=== PATIENT | female | born 1985 | race Caucasian/White ===

== ENCOUNTER 2018-04-12 10:22 | Inpatient (IN) | payer MEDICAID, OTHER, SELFPAY ==
[2018-04-12] MEDS: Lactated Ringer's 1,000 ML IV SCH ×2 (11:05→21:55)
[2018-04-12] MEDS ORDERED: Ondansetron PF 4 MG/2 ML Vial IVP PRN ×3 (11:17→19:04)
[2018-04-12] MEDS ORDERED: Bicitra 30 ML UDCUP PO SCH (11:17)
[2018-04-12] MEDS ORDERED: CEFAZOLIN/Water 2 GM/20 ML SYRINGE SLOW IVP SCH (11:17)
[2018-04-12] MEDS ORDERED: CEFAZOLIN 2 GM/50 ML-DEXTROSE 2 GM in Premix Bag 1 BAG IVPB SCH (11:30)
[2018-04-12 11:35] VITALS: BMI 33.5
[2018-04-12 11:37] LABS: Hemoglobin 13.3 g/dL (12.0-16.0); Mean Corpuscular HGB CONC 33.9 g/dL (32.0-36.0); Mean Corpuscular Hemoglobin 30.4 pg (27.0-31.0); Mean Corpuscular Volume 89.6 fL (78.0-98.0); Platelet Count 192 thou/uL (130-400); RBC Distribution Width 13.2 % (11.5-14.5); Red Blood Cell (RBC) Count 4.37 mill/uL (4.20-5.40); White Blood Cell (WBC) Count 9.8 thou/uL (4.8-10.8)
[2018-04-12 12:12] LABS: Syphilis Antibody Nonreactive (Nonreactive); Syphilis Antibody Index 0.04 S/CO (<1.00 Non-Reactive)
[2018-04-12 12:14] LABS: HBSAg Index 0.25 S/CO (0-0.99); Hep B Surf Ag Non-Reactive S/CO (NonReactive)
[2018-04-12] MEDS ORDERED: Morphine PF 1 MG/ML SYR ONE (14:04)
[2018-04-12] MEDS ORDERED: Bupivacaine 0.75% W/DEXTROSE 8.25% 2 ML AMP ONE (14:05)
[2018-04-12] MEDS ORDERED: PHENYLEPHRINE-NS 100 MCG/ML 10 ML SYRINGE ONE (14:05)
[2018-04-12] MEDS ORDERED: Ketorolac Tromethamine 30 MG/ML VIAL ONE (14:05)
[2018-04-12] MEDS ORDERED: Oxytocin 10 UNITS/ML VIAL ONE ×2 (14:05→15:03)
[2018-04-12] MEDS ORDERED: ePHEDrine/0.9% NaCl/PF SYRINGE 50 mg/10 ml ONE ×2 (14:05→14:12)
[2018-04-12] MEDS ORDERED: Lidocaine 1% PF 5 ML VIAL ONE (14:05)
[2018-04-12] MEDS ORDERED: Ondansetron PF 4 MG/2 ML Vial ONE (14:05)
[2018-04-12] MEDS ORDERED: Meperidine HCl/PF 25 MG/ML VIAL SLOW IVP PRN (14:26)
[2018-04-12] MEDS ORDERED: L&D-Morphine 4 MG/ML VIAL SLOW IVP PRN (14:26)
[2018-04-12] MEDS ORDERED: Ondansetron HCl/PF 4 MG/2 ML Vial IVP PRN (14:26)
[2018-04-12] MEDS ORDERED: HYDROmorphone 2 MG/ML VIAL SLOW IVP PRN (14:26)
[2018-04-12] MEDS ORDERED: Promethazine HCl 25 MG SUPP PR PRN (14:27)
[2018-04-12] MEDS ORDERED: Eucerin (Mineral Oil/Petrolatum,White) 30 gm Jar TOP PRN (14:27)
[2018-04-12] MEDS ORDERED: Naloxone HCl 0.4 mg/ml Vial IV PRN (14:27)
[2018-04-12] MEDS ORDERED: Promethazine HCl 25 MG/ML VIAL IM PRN (14:27)
[2018-04-12] MEDS ORDERED: diphenhydrAMINE 50 MG/ML VIAL IVP PRN (14:27)
[2018-04-12] MEDS ORDERED: Ketorolac Tromethamine 30 MG/ML VIAL IVP PRN (14:27)
[2018-04-12] MEDS ORDERED: Naloxone HCl 0.4 mg/ml Vial IVP PRN ×2 (14:27)
[2018-04-12] MEDS ORDERED: Ketorolac Tromethamine 30 MG/ML VIAL IVP SCH (14:30)
[2018-04-12] MEDS ORDERED: Communication Order-Pharmacy FS SCH (14:30)
[2018-04-12] MEDS ORDERED: Methylergonovine 0.2 MG/ML VIAL ONE (16:22)
[2018-04-12] MEDS ORDERED: Misoprostol 200 MCG TAB ONE (16:22)
[2018-04-12] MEDS ORDERED: Misoprostol 200 MCG TAB PO SCH (16:45)
[2018-04-12] MEDS ORDERED: Methylergonovine 0.2 MG/ML VIAL IM SCH (16:45)
[2018-04-12] MEDS ORDERED: diphenhydrAMINE 25 MG CAP PO PRN (19:04)
[2018-04-12] MEDS ORDERED: Bisacodyl 10 MG SUPP PR PRN (19:04)
[2018-04-12] MEDS ORDERED: Lanolin Ointment 7 GM TUBE TOP PRN (19:04)
[2018-04-12] MEDS ORDERED: NS / Oxytocin 40 units/1000ml 1,000 ML IV SCH (19:04)
[2018-04-12] MEDS: metroNIDAZOLE 500 MG in Premix Bag 1 BAG IVPB SCH (21:08)
[2018-04-12] MEDS ORDERED: Ibuprofen 800 MG TAB PO SCH (22:00)
[2018-04-12] MEDS ORDERED: CEFAZOLIN 2 GM in Sodium Chloride 0.9% 100 ML IVPB SCH (22:00)
[2018-04-12] MEDS: CEFAZOLIN 2 GM/50 ML-DEXTROSE 2 GM in Premix Bag 1 BAG IVPB SCH (23:02)
--- NOTE | 2018-04-13 01:37 | OP ---
DATE OF PROCEDURE: 04/12/2018 LOCATION: [place], [place]. RESIDENT SURGEON: Osiel Clements DO PROCEDURE PERFORMED: Repeat low-transverse section. PREOPERATIVE DIAGNOSES: 1. Term intrauterine . 2. Previous section. POSTOPERATIVE DIAGNOSES: 1. Term intrauterine , delivered. 2. Repeat low-transverse section. ANESTHESIA: Spinal. INDICATIONS: The patient is a 33-year-old G2, now P2, 39 and 1 week's, who presents for repeat scheduled section. PROCEDURE IN DETAIL: After risks, benefits, and alternatives were explained to the patient, she gave informed consent. Preoperative antibiotics included 2 g of Ancef IV. The patient was taken to the operating room and spinal anesthesia was initiated. She was placed in the supine position with a left tilt and prepped and draped in the usual sterile fashion. A Pfannenstiel incision was made with a scalpel and carried down to the level of the fascia, which was sharply nicked. At this point, it was noted that the patient had dense fascial adhesions, both above the fascia and below, involving segments of omentum. The omental adhesions were carefully lysed using both cautery, blunt dissection and sharp dissection with Meng scissors. The fascial cut was extended bilaterally with Meng scissors. The inferior and superior edges of the cut fascial edges were elevated with Aureliano clamps and underlying rectus muscles were sharply and bluntly dissected free. The recti were divided digitally and retracted manually. At this point, the remaining omental adhesions were bluntly and sharply dissected, including omental adhesions to the underlying uterus. The bladder blade was placed. A low transverse score was made with a scalpel, and the uterus was entered in the midline with the scalpel. Clear fluid was seen. Hysterotomy was extended manually. The was noted to be vertex and easily delivered by fundal pressure. Mouth and nares were bulb suctioned. Cord was clamped and cut and grossly normal female was handed to the awaiting nurse. Cord blood was obtained. The placenta was spontaneously delivered, found to be intact with 3-vessel cord noted and discarded. The uterus was externalized and the endometrium was curetted with a dry lap. The uterus was noted to have approximately 1.5 cm uterine fibroids in addition to adhesed omentum attached to the uterine fundus. The bladder blade was subsequently replaced and the uterus was closed with a running locking 0 Vicryl suture. Two [id number] stitches were then placed and adequate hemostasis was noted following this. Subsequently, the omental adhesion was lysed and 3-0 Vicryl suture was applied around the omental adhesions prior to lysis to ensure hemostasis. Subsequently, Surgicel was placed over the anterior portion of the uterus including over the hysterotomy incision. Seprafilm was then placed over this and small amount of sterile water was applied to the Seprafilm. Prior to Surgicel and Seprafilm placement, the abdomen was irrigated with saline and suctioned free of clots. Following placement of Seprafilm and Surgicel, uterus was internalized and the hysterotomy was again noted to be hemostatic. The peritoneum was then closed with running nonlocking 3-0 Vicryl suture. Fascia was closed with a running non-locking 1 Monocryl suture. Subcutaneous tissue was irrigated and bleeders were cauterized. Subcutaneous tissue was approximated with 3 simple interrupted 3-0 Vicryl sutures. The skin was then approximated with franklin and pressure dressing was placed. All counts were correct. The patient tolerated the procedure well and was taken to the recovery room in stable condition. ESTIMATED BLOOD LOSS: 600 mL. COMPLICATIONS: None. SPECIMENS: Cord blood was sent to the lab for blood type. FINDINGS: 1. Grossly normal female infant with Apgars of 8 and 9. 2. Grossly normal placenta with 3-vessel cord discarded. DRAINS: Donald to gravity drained clear urine. Job ID: [id number]
[2018-04-13] MEDS ORDERED: Meperidine HCl/PF 25 MG/ML VIAL IM PRN (02:30)
[2018-04-13] MEDS ORDERED: HYDROcodone/Acetaminophen 5/325 mg Tablet PO PRN (02:30)
[2018-04-13] MEDS ORDERED: Ketorolac Tromethamine 30 MG/ML VIAL IVP PRN (04:52)
[2018-04-13] MEDS: metroNIDAZOLE 500 MG in Premix Bag 1 BAG IVPB SCH ×3 (04:58→21:17)
[2018-04-13] MEDS: Ferrous Sulfate 325 MG TAB PO SCH ×3 (05:29→20:59)
[2018-04-13] MEDS: Docusate Calcium (SURFAK) 240 MG CAP PO SCH ×3 (05:29→21:18)
[2018-04-13] MEDS: CEFAZOLIN 2 GM/50 ML-DEXTROSE 2 GM in Premix Bag 1 BAG IVPB SCH ×3 (06:19→22:37)
[2018-04-13 06:26] LABS: Mean Corpuscular HGB CONC 34.6 g/dL (32.0-36.0); Mean Corpuscular Hemoglobin 31.4 pg (27.0-31.0); Mean Corpuscular Volume 90.9 fL (78.0-98.0); Mean Platelet Volume 8.5 fL (7.4-10.4); Platelet Count 163 thou/uL (130-400); Red Blood Cell (RBC) Count 3.81 mill/uL (4.20-5.40); White Blood Cell (WBC) Count 9.4 thou/uL (4.8-10.8)
[2018-04-13] MEDS: Prenatal Vitamin 1 TAB PO SCH (10:13)
[2018-04-13] MEDS: HYDROcodone/Acetaminophen 5/325 mg Tablet PO PRN ×2 (10:14→12:38)
[2018-04-13] MEDS: Simethicone Chewable 80 MG TAB PO PRN ×2 (12:39→21:17)
[2018-04-13] MEDS: Ibuprofen 800 MG TAB PO SCH ×2 (12:39→21:18)
[2018-04-13] MEDS ORDERED: Sodium Chloride 0.9% 10 ML ONE (21:29)
[2018-04-14] MEDS: metroNIDAZOLE 500 MG in Premix Bag 1 BAG IVPB SCH ×2 (04:40→13:49)
[2018-04-14] MEDS: Ibuprofen 800 MG TAB PO SCH ×2 (05:27→13:06)
[2018-04-14] MEDS: CEFAZOLIN 2 GM/50 ML-DEXTROSE 2 GM in Premix Bag 1 BAG IVPB SCH ×2 (05:27→15:59)
[2018-04-14] MEDS: HYDROcodone/Acetaminophen 5/325 mg Tablet PO PRN ×3 (06:11→16:35)
[2018-04-14] MEDS: Docusate Calcium (SURFAK) 240 MG CAP PO SCH (09:24)
[2018-04-14] MEDS: Prenatal Vitamin 1 TAB PO SCH (09:24)
[2018-04-14] MEDS: Ferrous Sulfate 325 MG TAB PO SCH (09:25)
[2018-04-14 11:56] VITALS: TEMP 98.3
[2018-04-14] MEDS ORDERED: Sodium Chloride 0.9% 10 ML ONE (13:43)
[2018-04-14 17:37] VITALS: BP 137/73
== END 2018-04-14 17:45 | disposition home or self-care (01) | DRG 788 ==
LOC: L&D 10:22 → 3SW 19:03
PROVIDERS: ADMIT Family Medicine; ATTEND Family Medicine
PROC: 10D00Z1 Extraction of Products of Conception, Low, Open Approach (ICD-10-PCS; principal; 2018-04-12)
DX: O34.211 Maternal care for low transverse scar from previous cesarean delivery (principal); Z3A.39 39 weeks gestation of pregnancy; Z37.0 Single live birth
CPT/HCPCS: 36415; 51702; 85027; 86780; 86850; 86900; 86901; 87340; J1885; J2001; J2210; J2274; J2405; J2590; J3490